=== PATIENT | male | born 1955 | race Caucasian/White ===

== ENCOUNTER 2024-05-12 16:34 | Emergency (ER) | payer BC, SELFPAY ==
[2024-05-12 16:37] VITALS: BP 163/93
--- NOTE | 2024-05-12 17:34 | ED.GENMED ---
History of Present Illness
General
Chief Complaint: Back Pain
Source: patient
Exam Limitations: none
Time Seen by Provider: 05/12/24 17:12
Nursing documentation reviewed up to this point in time: agreed with
History of Present Illness
History of Present Illness:
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 Does a lot of heavy labor (for
years)but no recollection of specific overuse or injury recently. States he's been told 'I have the back of an 90 year old.' Denies fever. Denies incontinence. Denies weakness in legs. Right leg 'gave out at my knee' twice today and he fell, denies
any injury from falls. Known arthritis of both knees.
Past History
Past History
ED Past Medical History: HTN, Hypercholesterolemia and Other (chronic intermittent back pain, knee pain)
ED Past Surgical History: Appendectomy and Cardiac (TAVR)
Social History
Tobacco: Non-smoker
Alcohol: None
Personal:
Living: alone ( had a stroke while visiting family in another states so she is with them for now)
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
Review of Systems
Review of Systems
Allergies reviewed?: Yes
All Other Systems: ROS reviewed and negative except as documented in HPI and ROS
Constitutional: Denies fever, fatigue or chills
Respiratory: Denies trouble breathing
Cardiac: Denies chest pain
ABD/GI: Denies abdominal pain or nausea
: Denies dysuria, frequency, incontinence, difficulty voiding or urgency
Musculoskeletal: Reports back pain (with radiation to right outer thigh) and other (chronic knee pain)
Skin: Reports no symptoms
Neurological: Reports no symptoms
Phy Exam
Physical Exam
Physical Exam:
GENERAL: No acute distress. A&Ox3.
CONSTITUTIONAL: Afebrile.
EYES: clear, conjunctivae normal
RESPIRATORY: Regular respirations, nonlabored, lungs clear.
CARDIOVASCULAR: Regular rate and rhythm, no murmurs, no rubs.
GI: Soft, nontender, normal BS
MUSCULOSKELETAL: Tender over right SI joint. Moves with ease. Sit to stand, ambulates well but falters at times due to pain. Neg bilateral SLR. Well perfused.
SKIN: Warm, dry, pink
PSYCH: Normal mood and affect. Well kept, interactive and appropriate
NEUROLOGIC: Awake, alert and oriented. No focal neurological deficits. Patellar reflexes equal. Strength equal throughout.
Course
Orders/Labs/Results
Orders:
Orders
05/12/24 17:32
Lumbar Spine, 2 or 3 View [CR Lumbar Spine 2 Or 3 Views] Urgent
Comment:
Reason For Exam: R low back pain rad down R leg
05/12/24 17:33
Dexamethasone [Decadron] 10 mg PO NOW STA
Vital Signs
Initial and Last Documented VS:
Initial Vital Signs
Temp Pulse Resp Pulse Ox
98.9 F 69 18 98
05/12/24 16:35 05/12/24 16:35 05/12/24 16:35 05/12/24 16:35
Last Documented Vital Signs
Temp Pulse Resp BP Pulse Ox
98.9 F 69 18 163/93 98
05/12/24 16:35 05/12/24 16:35 05/12/24 16:35 05/12/24 16:37 05/12/24 16:35
MDM/Problems Addressed
Differential Diagnosis Includes:
SI joint sprain, lumbar strain, sciatica, disc protrusion
MDM/Problems Addressed:
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 Does a lot of heavy labor (for
years)but no recollection of specific overuse or injury recently. States he's been told 'I have the back of an 90 year old.' Denies fever. Denies incontinence. Denies weakness in legs. Right leg 'gave out at my knee' twice today and he fell, denies
any injury from falls. Known arthritis of both knees.
No cauda equina
6:30 p.m.
Pt states his back is feeling better after 'that medicine' (Decadron)
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
Rx for Flexeril and Prednisone, Hydrocodone (#6) sent to his pharmacy
Pt ambulated out with steady gait at discharge
*Critical Care Note
Total Time (30-74mins, 75-104mins- exclusive of procedures): Not Applicable
ED Attending Note
-
Portions of this chart may have been created with voice recognition software.� Occasional wrong word or��sound alike� substitutions may have occurred due to the inherent limitations of voice recognition software.
Discharge Plan
Departure
Patient Disposition: Home (Routine Discharge)
Date of Disposition: 05/12/24
Time of Disposition: 18:43
Patient with high blood pressure during this ER visit?: Yes
Condition: Fair
Discharge Problem:
Low back pain, Acute right-sided low back pain with sciatica
Instructions: Low Back Pain (DC), Sciatica (DC)
Prescriptions:
New
prednisone 10 mg Tablet
See Rx Instructions .ROUTE .COMPLEX Qty: 30 0RF
Rx Instructions:
Take By Mouth:
40 mg daily x3 days, 30 mg daily x3 days,
20 mg daily x3 days, 10 mg daily x3 days.
cyclobenzaprine 10 mg tablet
10 mg PO TID PRN (Reason: pain) Qty: 30 0RF
hydrocodone-acetaminophen 5-300 mg tablet
1 tab PO Q8H PRN (Reason: Pain) Qty: 6 0RF
No Action
amlodipine 10 MG tablet
10 mg PO HS
aspirin 81 MG tablet,delayed release (DR/EC)
81 mg PO DAILY
furosemide 40 MG tablet
40 mg PO DAILY Qty: 7 0RF
atorvastatin 40 MG tablet
40 mg PO HS Qty: 30 2RF
acetaminophen 325 MG tablet
650 mg PO Q6HPRN PRN (Reason: mild pain,headache,temp >101F ) 0RF
amiodarone [Pacerone] 200 MG tablet
200 mg PO BID Qty: 60 1RF
Rx Instructions:
continue taking for 1 month until you see your core extruder.
potassium chloride [Klor-Con M20] 20 MEQ tablet,ER particles/crystals
20 meq PO DAILY Qty: 7 0RF
pantoprazole 40 MG tablet,delayed release (DR/EC)
40 mg PO DAILY Qty: 30 1RF
metoprolol tartrate 50 MG tablet
50 mg PO BID Qty: 60 2RF
oxycodone 5 MG tablet
5 mg PO Q6HPRN PRN (Reason: mild pain) Qty: 10 0RF
apixaban [Eliquis] 5 MG tablet
5 mg PO BID Qty: 60 2RF
Rx Instructions:
continue until you see your core extruder. Dr. Elkins
Referrals:
Mick Interiano MD [Family Provider] - Follow up in 5-7 days
Activity Restrictions/Additional Instructions:
As we discussed, I sent a prescription to your pharmacy for Flexeril muscle relaxant, hydrocodone narcotic pain medication and prednisone steroid taper. Start the prednisone tomorrow you were given a dose of steroid here today. The hydrocodone and
Flexeril can make you sleepy and slow your reflexes so do not drive or operate any machinery within 8 hours of taking it.
See your doctor in 7 to 10 days if not much improved as if you need further evaluation he will have to order it
Interventions
Interventions:
*Nursing Disposition Last Done: 05/12/24 19:23
ED-Musculoskeletal Assessment Last Done: 05/12/24 17:25
Discharge Date and Time
Discharge Date/Time: 05/12/24 19:23
Print Language: SAO TOMEAN
[2024-05-12] MEDS: DECADRON 10 MG PO (17:46)
== END 2024-05-12 19:23 | disposition home or self-care (01) ==
LOC: EMR 16:34
PROVIDERS: EMERGENCY PHYSICIAN Emergency Medicine; FAMILY PHYSICIAN Family Medicine
DX: M54.41 Lumbago with sciatica, right side (principal); W19.XXXA Unspecified fall, initial encounter; I10 Essential (primary) hypertension; E78.00 Pure hypercholesterolemia, unspecified; Z90.49 Acquired absence of other specified parts of digestive tract
CPT/HCPCS: 99283; 72100

== ENCOUNTER → 2024-05-29 17:30 | Outpatient (REF) | payer BC, SELFPAY | LOC: RAD 17:30 | PROVIDERS: ATTENDING PHYSICIAN Family Medicine | DX: M54.16 Radiculopathy, lumbar region (principal); M25.551 Pain in right hip; M25.561 Pain in right knee | CPT/HCPCS: 73522; 73564 ==